=== PATIENT | male | born 1955 | race Caucasian/White ===

== ENCOUNTER 2017-09-27 12:31 | Outpatient (CLI) | payer OTHER ==
--- NOTE | 2017-09-27 13:17 | RAD ---
PA AND LATERAL CHEST: HISTORY: The patient is status post aortic dissection repair. FINDINGS: Heart size is borderline. Postop sternotomy changes. Valve replacement is seen. Surgical clips are seen over the right chest. The lungs appear clear of any infiltrative process. IMPRESSION: No active intrathoracic disease. POS: [id number]
== END 2017-09-27 12:32 | disposition home or self-care (01) ==
LOC: NAV RAD 12:31
PROVIDERS: ATTEND Family Medicine
DX: Z02.71 Encounter for disability determination (principal); I71.00 Dissection of unspecified site of aorta
CPT/HCPCS: 71046